=== PATIENT | female | born 1980 | race Caucasian/White ===

== ENCOUNTER 2019-01-28 12:15 | Emergency (ER) | payer OTHER ==
[~2019-01-28] VITALS: Ht 162.6 cm; Wt 52.0 kg
[2019-01-28] MEDS ORDERED: SPIR50TA4 PO (16:22)
[2019-01-28 17:21] LABS: BASO # 0.1 10^3/uL (0.0-0.2); BASO % 0.3 % (0.0-1.0); EOS # 0.1 10^3/uL (0.0-0.50); EOS % 0.7 % (0.0-3.0); HEMATOCRIT 46.9 % (36.0-47.0); HEMOGLOBIN 16.1 g/dl (12.0-15.5); LYMPH # 1.8 10^3/uL (1.5-4.5); LYMPH % 11.6 % (24.0-44.0); MEAN CORPUSCULAR HEMOGLOBIN 31.6 pg (27.0-33.0); MEAN CORPUSCULAR HGB CONC 34.3 g/dl (32.0-36.5); MEAN CORPUSCULAR VOLUME 92.1 fl (80.0-96.0); MONO # 0.9 10^3/uL (0.0-0.8); MONO % 6.1 % (0.0-5.0); NEUTROPHILS # 12.2 10^3/uL (1.8-7.7); NEUTROPHILS % 80.9 % (36.0-66.0); PLATELET COUNT, AUTOMATED 228 10^3/uL (150-450); RED BLOOD COUNT 5.09 10^6/uL (4.00-5.40); WHITE BLOOD COUNT 15.1 10^3/uL (4.0-10.0)
[2019-01-28 17:56] LABS: BLOOD UREA NITROGEN 14 MG/DL (7-18); CALCIUM LEVEL 9.2 MG/DL (8.5-10.1); CARBON DIOXIDE LEVEL 27 MEQ/L (21-32); CHLORIDE LEVEL 103 MEQ/L (98-107); CREATININE FOR GFR 0.89 MG/DL (0.55-1.30); FREE THYROXINE INDEX 3.9 % (1.3-4.8); GLOMERULAR FILTRATION RATE > 60.0 (>60); GLUCOSE, FASTING 90 MG/DL (70-100); POTASSIUM SERUM 4.4 MEQ/L (3.5-5.1); SODIUM LEVEL 138 MEQ/L (136-145); T UPTAKE 36 % (30-39); THYROXINE (T4) 10.7 UG/DL (4.5-12.0)
[2019-01-28 18:50] VITALS: BP 132/83
--- NOTE | 2019-01-28 19:03 | REPVR ---
EXAM: US Soft Tissue Head and Neck, Soft Tissue EXAM DATE/TIME: 01/28/2019 6:13 PM CLINICAL HISTORY: 38 years old, female; Neck pain; Additional info: Pain, swelling over thyroid, central TECHNIQUE: Imaging protocol: Real-time ultrasound scan of the head and neck with image documentation. Exam focused on the soft tissue in the region of clinical concern. COMPARISON: No relevant prior studies available. FINDINGS: Right thyroid lobe: Right lobe of the thyroid gland measures 5.4 x 1.3 x 1.2 cm. Small nodules are demonstrated measuring 3 x 1 x 2.4 mm (cystic) in the interpolar region, 3 x 2 x 2 mm (solid) interpolar region, and 4 x 2 x 3 mm in the lower pole (solid). Left thyroid lobe: The left lobe measures 4.2 x 1.1 x 0.9 cm. A small lesion demonstrated in the upper pole measures 3 x 2 x 2 mm (cystic) and a small in the mid to upper pole measures 2 x x 1.2 mm (cystic). Isthmus: A complex nodule measuring 1.7 x 1.2 x 1.7 cm demonstrating increased peripheral flow into a thick rind surrounding the lesion as well as a solid component internally measuring 5 x 3 mm is demonstrated and corresponds to the clinically palpable abnormality. The isthmus measures 3.2 mm. Lymph nodes: No lymphadenopathy. Soft tissues: Unremarkable. No fluid collections. IMPRESSION: Multiple bilateral subcentimeter small thyroid nodules. Larger complex nodule in the isthmus as described above. Although no adenopathy demonstrated biopsy suggested. Electronically signed by: Todd Pittman On 01/28/2019 19:03:00 PM
[2019-01-28] MEDS ORDERED: PRED20TA PO (19:10)
[2019-01-28] MEDS ORDERED: CLEO300C2 PO (19:10)
[2019-01-28] MEDS ORDERED: CLINDAMYCIN 150 MG CAP PO ONE (19:15)
[2019-01-28] MEDS ORDERED: predniSONE 20 MG TAB PO ONE (19:15)
--- NOTE | 2019-01-30 13:24 | ED PDOC ---
Post-Departure Follow-Up dr cobos faxed formal report of thyroid us for fu Maggy Sung MD Jan 30, 2019 13:24
== END 2019-01-28 19:20 | disposition home or self-care (01) ==
LOC: M ED 12:15
DX: E06.0 Acute thyroiditis (principal); E04.1 Nontoxic single thyroid nodule; Z88.1 Allergy status to other antibiotic agents; Z88.2 Allergy status to sulfonamides

== ENCOUNTER → 2019-01-28 | Outpatient (REF) | payer OTHER ==
[~2019-01-28] MED LIST: CLEO300C2 PO; PRED20TA PO; SPIR50TA4 PO
== END ==
LOC: M SFHCLERA 11:12
PROVIDERS: ATTEND Nurse Practitioner Family
DX: J02.9 Acute pharyngitis, unspecified (principal)

== ENCOUNTER → 2021-01-12 | Outpatient (CLI) | payer OTHER | LOC: M WUC 09:10 | PROVIDERS: ATTEND Physician Assistant | DX: M76.51 Patellar tendinitis, right knee (principal) ==

== ENCOUNTER → 2022-12-12 | Outpatient (REF) | payer OTHER | LOC: M SFHCDERM 17:37 | PROVIDERS: ATTEND Physician Assistant | DX: D49.2 Neoplasm of unspecified behavior of bone, soft tissue, and skin (principal) ==

== ENCOUNTER → 2023-10-27 | Outpatient (REF) | payer OTHER | LOC: M SFHCDERM 17:19 | PROVIDERS: ATTEND Physician Assistant | DX: L72.0 Epidermal cyst (principal) ==